=== PATIENT | male | born 1965 | race Caucasian/White ===

== ENCOUNTER 2025-02-22 02:09 | Observation (INO) | payer OTHER, SELFPAY ==
[2025-02-21 18:41] VITALS: BP 143/98
[2025-02-21 18:55] LABS: Hematocrit 51.6 % (39.0-52.0); Hemoglobin 18.2 g/dL (13.0-18.0); Mean Corp Hgb Conc. 35.3 g/dL (33.0-37.0); Mean Corpuscular Volume 84.3 fL (80.0-94.0); Nucleated Red Blood Cells % 0 % (-); Platelet Count 249 10^3/uL (130-400); Red Cell Dist. Width 13.5 % (11.5-14.5)
[2025-02-21 19:06] LABS: INR 0.98; PT 13.3 Sec (11.4-14.6)
[2025-02-21 19:11] LABS: ALT (SGPT) 43 U/L (0-50); AST (SGOT) 26 U/L (17-59); Albumin 4.3 g/dl (3.5-5.0); Alkaline Phosphatase 40 U/L (38-126); Blood Urea Nitrogen 24 mg/dl (9-20); Calcium 9.6 mg/dl (8.4-10.2); Carbon Dioxide 26 mmol/L (22-30); Chloride 104 mmol/L (98-107); Glucose 99 mg/dl (70-99); Potassium 5.1 mmol/L (3.5-5.1); Sodium 135 mmol/L (135-145); Total Protein 6.9 g/dl (6.3-8.2); eGFR 57.54
[2025-02-21 19:19] LABS: Troponin I < 0.012 ng/ml
[2025-02-21 23:21] VITALS: BP 135/88
--- NOTE | 2025-02-21 23:23 | ED.GENMED ---
History of Present Illness
General
Chief Complaint: Chest Pain
Source: patient
Exam Limitations: none
Time Seen by Provider: 02/21/25 23:22
History of Present Illness
History of Present Illness:
59-year-old male complaining of upper abdominal/lower chest pain that started 3 to 4 days ago. Some nausea. No pleuritic pain no shortness of breath no radiation to the arm or back.
Past History
Past History
ED Past Medical History: HTN and Hypercholesterolemia
ED Past Surgical History: Other (R groin hernias repaired 23 years ago)
Social History
Tobacco: Former smoker (quit 23 years ago)
Personal:
Living: with family
Employment: Employed (road oiling truck driver)
Review of Systems
Review of Systems
All Other Systems: Not applicable
Constitutional: Denies fever
Phy Exam
Physical Exam
Physical Exam:
GENERAL: Alert and oriented in no apparent distress
EYE: Orbits normal.
NECK: Supple, no significant adenopathy.
ENT: Pharynx without erythema
CARDIAC: Regular rate and rhythm without any obvious murmurs.
LUNGS: Clear breath sounds,normal
ABDOMEN: Somewhat of a tight abdomen however bowel sounds present. Minimal epigastric tenderness. No rebound or guarding no mass or hernia
NEUROLOGICAL: Alert and oriented , grossly non-focal
SKIN: Warm and dry, no rash or lesion, no discoloration, skin intact.
MUSCULOSKELETAL: No edema,no deformity.Good color
PSYCH: Normal and appropriate interaction.
Scores
Heart Score for Chest Pain Patients
STEMI patient?: No
History: Slightly or Non-Suspicious
ECG: Normal
Age: >45 - <65 years
Risk Factors: 1 or 2 Risk Factors
Troponin: </= Normal Limit
Heart Score for Chest Pain Patients: 2
Heart Score Risk: 2.5% MACE over next 6 weeks
Course
Orders/Labs/Results
Orders:
Orders
02/21/25 18:35
Electrocardiogram (*1) Urgent
Reason for Study: Chest Pain
EKG- Treatment ONCE
02/21/25 18:43
CR Chest - 2 Views Urgent
Comment:
Reason For Exam: chest pain
02/21/25 18:49
Complete Blood Count/With Diff Urgent
Comprehensive Metabolic Panel Urgent
Lipase Urgent
Comment: ADD ON
Prothrombin Time Urgent
Troponin I Urgent
02/21/25 23:31
Add On- LAB Urgent
Tests Added?: lipase
IV Insert/Care/Rem.- Treatment PRN
DDimer [D-Dimer] Urgent
Troponin I Urgent
Urinalysis Reflex To Culture Urgent
Date Specimen was Collected: 02/22/25
Time Specimen was Collected: 00:11
0.9% Sodium Chloride 500 ml [Nss] 500 ml IV BOLUS
02/22/25 00:00
US Abdomen Complete/Upper Urgent
Reason For Exam: Upper abdominal pain/leukocytosis
Abnormal Lab Results
02/21/25
18:49
WBC 13.5 H 10^3/uL
(4.8-10.8)
RBC 6.12 H 10^6/uL
(4.70-6.10)
Hgb 18.2 H g/dL
(13.0-18.0)
Abs Immat Gran (auto) 0.3 H 10^3/uL
(0-0.05)
Absolute Neuts (auto) 10.0 H 10^3/uL
(1.4-6.5)
Absolute Monos (auto) 1.3 H 10^3/uL
(0.1-0.6)
Immature Gran % 1.9 H %
(0-0.5)
Lymphocytes % 12.3 L %
(20.5-51.1)
Monocytes % 9.8 H %
(1.7-9.3)
BUN 24 H mg/dl
(9-20)
Creatinine 1.4 H mg/dL
(0.7-1.3)
Lipase 753 H U/L
(23-300)
02/21/25 18:49
02/21/25 18:49
Vital Signs
Initial and Last Documented VS:
Initial Vital Signs
Temp Pulse Resp BP Pulse Ox
98.7 F 96 17 143/98 96
02/21/25 18:41 02/21/25 18:41 02/21/25 18:41 02/21/25 18:41 02/21/25 18:41
Last Documented Vital Signs
Temp Pulse Resp BP Pulse Ox
98.7 F 83 24 128/87 96
02/21/25 18:41 02/22/25 00:15 02/22/25 00:15 02/22/25 00:00 02/22/25 00:15
MDM/Problems Addressed
Differential Diagnosis Includes:
Prolonged symptoms with negative EKG and troponin. Not a primary cardiac issue. No cytosis, lipase elevation prominent pancreas by ultrasound. Most suspicious of pancreatitis. Patient does drink three quarters of a case of beer on the weekends.
States he does not drink on weekdays. Possible etiologies would be alcohol or cholesterol/triglycerides.
*Radiology
Radiology exam reviewed: radiology read reviewed (Prominent pancreas.)
*Pulse Oximetry
SaO2: 96
Oxygen Mode of Delivery: Room air
Patient hypoxic: no
*EKG
Interpreted by ED Provider?: Yes
Interpretation: normal
Comparison EKG: no comparison EKG present
Heart Rate: 91
Rate: normal
Rhythm: sinus
[place]: normal axis
Interval: normal interval
QRS Pattern: normal QRS
Ischemia: no ischemia
*Critical Care Note
Total Time (30-74mins, 75-104mins- exclusive of procedures): Not Applicable
ED Attending Note
-
Portions of this chart may have been created with voice recognition software.� Occasional wrong word or��sound alike� substitutions may have occurred due to the inherent limitations of voice recognition software.
Discharge Plan
Departure
Patient Disposition: Admit
Date of Disposition: 02/22/25
Time of Disposition: 01:26
Presentation/result/management discussed w/ accepting MD/DO: Hospitalist
Discharge Problem:
Epigastric/chest pain, Probable pancreatitis
Prescriptions:
No Action
atorvastatin 20 mg Tablet
20 mg PO DAILY
lisinopril 20 mg Tablet
20 mg PO DAILY
Referrals:
León Hood MD [Family Provider, Internal Medicine]
Interventions
Interventions:
*Risk Screen - Suicide Last Done: 02/21/25 18:43
*General Assessment Last Done: 02/21/25 18:43
*Neglect/Abuse Screening Last Done: 02/21/25 18:43
*ED COVID-19 Vaccine History Last Done: 02/21/25 18:43
ED- Cardiac Assessment Last Done: 02/21/25 23:37
Discharge Date and Time
Print Language: SLOVAK
[2025-02-21 23:56] LABS: D-Dimer 0.30 ug/mlFEU (0.00-0.50)
[2025-02-22] VITALS (9 sets, daily range): BP systolic 119–143; BP diastolic 80–105
[2025-02-22 00:05] LABS: Lipase 753 U/L (23-300)
[2025-02-22 00:13] LABS: Troponin I < 0.012 ng/ml
[2025-02-22 00:39] LABS: Urine Character Clear (Clear)
--- NOTE | 2025-02-22 01:57 | HPS.HSE ---
Family Physician
-
Family Physician: León Hood
Chief Complaint
-
Abd Pain
History of Present Illness
Patient is a 59y M with PMH significant for hypertension and dyslipidemia who presents to ED complaining of abdominal pain. Patient states that the pain started on Thursday and has been persistent since that time. Pain is across the upper
abdomen. No radiation into the lower abdomen or the back. No nausea / emesis. No diarrhea. He states that the discomfort feels like indigestion. Patient states that he hate a lot of 'junk food' at work this past week - not his usual diet. He
denies any prior h/o similar symptoms. He drinks alcohol on the weekends.
Medical History
Past Medical History
Past Medical History: Reports Other
Additional Past Medical History:
Hypertension
Dyslipidemia
Past Surgical History: Reports Other
Additional Past Surgical History:
Hernia Repair
Social History
Tobacco: Former Smoker (Quit smoking 26 years ago.)
Alcohol: Binge drinker (Drinks on the weekends. Several drinks daily.)
Family History
Family History: Not pertinent
Allergies / Home Medications
Allergies reflects when Allergies were last updated in [facility].
Home Medications with original date entered in [facility]
Allergy/Medication List:
Allergies
Allergy/AdvReac Type Severity Reaction Status Date / Time
tetracycline (Tetracycline) Allergy Unknown Verified 02/21/25 18:42
Home Medications
atorvastatin 20 mg tablet 20 mg PO DAILY 02/22/25
lisinopril 20 mg tablet 20 mg PO DAILY 02/22/25
Review of Systems
-
History Source: Patient
A 12 point ROS was completed and negative except as noted: Yes
Constitutional: Denies Fever or Chills
Respiratory: Denies Cough or Trouble Breathing
Cardiac: Reports Chest Pain; Denies Diaphoresis, Palpitations or Syncope
Abdomen/GI: Reports Abdominal Pain; Denies Nausea, Vomiting or Diarrhea
: Denies Dysuria or Flank Pain
Neurological: Denies Dizzy or Headache
Psych: Denies Depression or Anxiety
Physical Exam
Vital Signs
Vital Signs
Temp Pulse Resp BP Pulse Ox
98.7 F 83 24 128/87 96
02/21/25 18:41 02/22/25 00:15 02/22/25 00:15 02/22/25 00:00 02/22/25 00:15
Physical Exam
General: Other (59y M in no acute distress.)
HEENT: Moist mucous membranes and PERRLA
Respiratory: Clear; No Wheezes, Rales or Rhonchi
Cardiac: S1/S2 and Regular Rhythm; No Murmur
GI: Other (Softly distended. Pos BS. No focal tenderness. No rebound / guarding.)
Musculoskeletal: No Clubbing, No Cyanosis and No Edema
Neuro: AO x 3
Laboratory Results
-
02/21/25 18:49
02/21/25 18:49
Laboratory Results
PT 13.3 Sec (11.4-14.6) 02/21/25 18:49
INR 0.98 02/21/25 18:49
Total Bilirubin 1.0 mg/dl (0.2-1.3) 02/21/25 18:49
AST 26 U/L (17-59) 02/21/25 18:49
ALT 43 U/L (0-50) 02/21/25 18:49
Alkaline Phosphatase 40 U/L (38-126) 02/21/25 18:49
Troponin I < 0.012 ng/ml 02/21/25 23:31
Lipase 753 U/L (23-300) H 02/21/25 18:49
Impression/Plan
-
A/P: Patient is a 59y M with PMH significant for hypertension and dyslipidemia who presents to ED complaining of abdominal pain.
Abdominal Pain
- Observe overnight for further evaluation and treatment.
- Epigastric abdominal pain / lower chest pain since Thursday.
- ? gastritis v pancreatitis.
- EKG unremarkable. Troponin undetectable x 2.
- Tele overnight. 3rd troponin in AM. Doubt ACS.
- Mild elevation in lipase and pancreatic prominence on US - ? mild pancreatitis.
- Clear liquid diet, IVFs, pain control.
- IV PPI daily.
- Follow for changes in symptoms.
- GI evaluation.
Benign Hypertension
- Stable. Continue lisinopril with holding parameters.
CKD III
- Stable. SCr at / near known baseline.
- Follow for any changes.
DVT Prophylaxis: Lovenox
Code Status: Full
[2025-02-22] MEDS: NSS 1000 IV ×2 (03:07→09:54)
--- NOTE | 2025-02-22 03:42 | PTCARENOTE ---
Pt. arrived to unit from ED via w/c. Pt. able to safely ambulate into room 318-2 on . Pt. AAOx3 and able to make needs known. Tele placed per orders. No c/o pain. Oriented to unit. Call nieto within reach. Plan of care ongoing.
[2025-02-22 07:23] LABS: Hematocrit 51.0 % (39.0-52.0); Hemoglobin 17.5 g/dL (13.0-18.0); Mean Corp Hgb Conc. 34.3 g/dL (33.0-37.0); Mean Corpuscular Volume 85.9 fL (80.0-94.0); Platelet Count 216 10^3/uL (130-400); Red Cell Dist. Width 13.3 % (11.5-14.5)
[2025-02-22 07:31] LABS: Troponin I < 0.012 ng/ml
[2025-02-22 08:16] LABS: ALT (SGPT) 39 U/L (0-50); AST (SGOT) 23 U/L (17-59); Albumin 4.0 g/dl (3.5-5.0); Alkaline Phosphatase 38 U/L (38-126); Blood Urea Nitrogen 24 mg/dl (9-20); Calcium 9.2 mg/dl (8.4-10.2); Carbon Dioxide 24 mmol/L (22-30); Chloride 104 mmol/L (98-107); Estimated Creatinine Clearance 108 ml/min; Glucose 122 mg/dl (70-99); Potassium 4.7 mmol/L (3.5-5.1); Sodium 134 mmol/L (135-145); Total Protein 6.4 g/dl (6.3-8.2); eGFR > 60.00
[2025-02-22 08:21] LABS: Lipase 627 U/L (23-300)
--- NOTE | 2025-02-22 08:58 | CON.GI ---
Addendum entered and electronically signed by Felecia Ball Do, MD 02/22/25 15:51:
I saw and evaluated the patient. I reviewed the resident�s note and agree with findings and plan as documented in the resident�s note.
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 It has since improved with bowel rest. He was concerned for heart disease and came in. Denies new meds or travel. There is ETOH 5-6drinks
prior. Denies prior abd pain. Vitals stable exam obese mild TTP epigastric mild distension. no guarding or rebound. Labs reviewed. Lipase 753 now downtrending
Impression
- Acute epigastric abd pain with elevated lipase
Ddx includes acute pancreatitis
1st episode, suspect ETOH related
- Fatty liver
- HTN
- Hyperlipidemia
- Obesity
Recommendations
- CTAP IV oral contrast
- Low fat diet after above given pain improvement
- Protonix 40mg daily
- Check TG tomorrow
- Also overdue for screening colonoscopy OP
Will follow with you
-
Original Note:
Consultation
-
Date/Time Consultation Requested: 02/22/2025; 02:49
Date/Time Consultation Performed: 02/22/2025; 08:58
Requesting Provider: Felix Smith DO
Performing Provider: Felecia Paz MD; Delroy Esparza MD
Reason for Consultation: gastritis v pancreatitis
Medical History
Chief Complaint / HPI
Chief Complaint: 'epigastric ache/tightness'
History of Present Illness:
HPI
59 yo M PMH HTN, dyslipidemia with a chief complaint of epigastric ache/tightness.
It began on Thursday, after consuming several and large quantities of new foods for an appreciation week. It is a dull ache/tightness, not pain. No burning character. It is nonradiating. He tried pepcid and alkasetzer which did not resolve the ache.
However, no clear aggravating or alleviating factors, the dull ache has been steady through the weekend and into this week. He reports that he does experience reflux with sauce-foods, but this current episode is not of that character. Not happened
before.
He also reports that the ache is not related to PO intake. Of note, he consumed 6-8 beers during [employer] game this past weekend, and reports no change in the character of the ache.
No nausea, vomiting, diarrhea, constipation or changes in stool. No redness or blackness in stool. His last meal was yesterday evening.
No sick contacts, he denies lightheadedness, headaches, cough, dyspnea, focal weakness
He did receive a cortisone injection to right shoulder for shoulder pain ~2 weeks ago, but otherwise no new medications or dosage changes. No nsaids - only pepcid, alkasetzer to try to resolve this ache).
He denies constitutional symptoms (weightloss, fevers, chills).
PMH, he has dyslipidemia and was previously on fenofibrate for elevated triglycerides, switched to atorvastatin 1-2 years ago. HTN for multiple decades.
PSH: hernia repair ~30 years ago.
Social history is remarkable for occupation diesel truck mechanic, reports drinking 6-8 beers at a time on the weekends. quit tobacco smoking 26 years ago. No recreational drug use.
Past Medical History
Past Medical History: HTN and Other (dyslipidemia)
Past Surgical History: Other (hernia repair)
Social History
Tobacco: Former Smoker
Alcohol: Binge Drinker (6-8 beers over weekends in 1 sitting)
Drug: None
Personal:
Living: With Family
Employment: Employed (diesel truck mechanic)
Family History
Family History: Cancer (brother: brain cancer; father: lung cancer.)
Allergies / Home Medications
Allergy/AdvReac Type Severity Reaction Status Date / Time
tetracycline (Tetracycline) Allergy Unknown Verified 02/21/25 18:42
�Medication �Instructions �Recorded
atorvastatin 20 mg tablet 20 mg PO DAILY 02/22/25
lisinopril 20 mg tablet 20 mg PO DAILY 02/22/25
Review of Systems
-
History Source: Patient
Constitutional: Reports No Symptoms
EENT: Reports No Symptoms
Respiratory: Reports No Symptoms
Cardiac: Reports No Symptoms
Abdomen/GI: Reports Other (epigastric ache/tightness)
: Reports No Symptoms
Musculoskeletal: Reports No Symptoms
Skin: Reports No Symptoms
Neurological: Reports No Symptoms
Vital Signs
Temp Pulse Resp BP Pulse Ox
98.0 F 79 17 132/94 97
02/22/25 07:21 02/22/25 07:21 02/22/25 07:21 02/22/25 07:21 02/22/25 07:21
Physical Exam
Exam
General: No Apparent Distress
HEENT: Normocephalic, Anicteric and Moist Mucous Membranes
Respiratory: Clear
Cardiac: Murmur (no murmurs on my exam) and Other (pedal pulses were equal bilaterally on my exam)
GI: Soft, Non Tender, Normal Bowel Sounds, Distended and Other (Large abdominal girth; on my exam: no pulsatile mass appreciated; no abdominal bruits auscultated)
Musculoskeletal: No Edema
Skin: Other (no eruptive xanthomas on my exam)
Neuro: AO x 3 and No Motor Deficits
Psych: Calm
Results
WBC 10.4 10^3/uL (4.8-10.8) 02/22/25 06:52
Hgb 17.5 g/dL (13.0-18.0) 02/22/25 06:52
Hct 51.0 % (39.0-52.0) 02/22/25 06:52
MCV 85.9 fL (80.0-94.0) 02/22/25 06:52
Plt Count 216 10^3/uL (130-400) 02/22/25 06:52
Absolute Neuts (auto) 10.0 10^3/uL (1.4-6.5) H 02/21/25 18:49
PT 13.3 Sec (11.4-14.6) 02/21/25 18:49
INR 0.98 02/21/25 18:49
Sodium 134 mmol/L (135-145) L 02/22/25 06:52
Potassium 4.7 mmol/L (3.5-5.1) 02/22/25 06:52
Chloride 104 mmol/L (98-107) 02/22/25 06:52
Carbon Dioxide 24 mmol/L (22-30) 02/22/25 06:52
BUN 24 mg/dl (9-20) H 02/22/25 06:52
Creatinine 0.8 mg/dL (0.7-1.3) 02/22/25 06:52
Calcium 9.2 mg/dl (8.4-10.2) 02/22/25 06:52
Total Bilirubin 1.2 mg/dl (0.2-1.3) 02/22/25 06:52
AST 23 U/L (17-59) 02/22/25 06:52
ALT 39 U/L (0-50) 02/22/25 06:52
Alkaline Phosphatase 38 U/L (38-126) 02/22/25 06:52
Lipase 627 U/L (23-300) H 02/22/25 06:52
Diagnostic Image Results:
Abdominal ultrasound 02/22/2025:
FINDINGS: Preliminary report provided by [facility].
The gallbladder appears normal with a negative sonographic Chatman's sign. There is no evidence of biliary ductal dilation. The common bile duct measures 5 mm, within normal range of less than 6 mm in this 59-year-old patient.
Liver length is 20 cm, with top normal considered 18.0 cm. Diffuse increased echogenicity of the liver with increased attenuation of the ultrasound beam, findings compatible with fatty infiltration. No evidence of a focal hepatic lesion. The main
portal vein is patent with normal direction of flow.
The spleen appears normal with maximum dimension of 10.4 cm.
The pancreas is somewhat prominent sonographically, and the patient does have an elevated lipase value. There is no evidence for a focal fluid collection.
The upper abdominal IVC and the upper abdominal aorta appear normal.
Survey views of both kidneys are obtained with no evidence of mass, calculus, or pelvicalyceal dilation. Right kidney length is 12.5 cm and left kidney length is 14.1 cm.
IMPRESSION:
Normal appearance of the gallbladder with no evidence for biliary ductal dilation.
Hepatomegaly with diffuse fatty infiltration of the liver.
The pancreas is somewhat prominent sonographically, and the patient does have an elevated lipase value. No evidence for focal fluid collection.
Prior GI Procedures:
patient reports he has not had a colonoscopy or EGD.
Assessment / Plan
-
In summary, 59 yo M PMH HTN, dyslipidemia p/w epigastric ache/tightness, found to have elevated lipase to 753, Hgb at 18.2, and abdominal ultrasound showing prominent pancreas currently most concerning for pancreatitis
# Epigastric ache
# Pancreatitis
Assessment:
- ddx for epigastric ache/pain is broad and includes peptic ulcer disease, pancreatitis, gastritis. Non-GI etiologies should be considered, including ACS, AAA given HTN and prior smoking use
- in this patient, elevated lipase to 753 (which is <3x Upper limit of normal; 900), characteristic pain, and sonographic evidence of 'prominent pancreas' which together can be interpreted as meeting criteria (2 of the 3) for diagnosis
- Etiology of pancreatitis includes gallstones, EtOH use, idiopathic, extreme hypertriglyceride (classically > 1000), medication-induced
- In this patient, he does not have eruptive xanthomas, no evidence of gallstones on US, the EtOH use was after the onset on epigastric ache, no changes in med doses. Only new med is cortisone injection to shoulder, which seems unlikely to trigger
pancreatitis, but I guess theoretically possible.
- He was told that his lipid panel was normal last year and has an appt with PCP in 2 weeks with routine blood work to be done.
- In short, it is unclear what the clear trigger is: possibly related to ongoing EtOH use and large volume food intake last week. Idiopathic pancreatitis is possible.
- His Hgb is elevated to 18.2 (baseline appears 17.5) which may suggest dehydration at admission, but mucus membranes moist on my exam today
- LFTs within normal limits
- he reports having an appetite
- Gastritis etiology is also possible because of large consumption of new foods over a week, followed by 6-8 beers during [employer] game.
- However, he denies nausea/vomiting, bloating, and reports having an appetite (currently CLD).
- PUD is possible, but no nsaid use, and no relationship of ache to PO intake (worsening or improvement).
- H pylori can be considered as well, and outpatient endoscopic evaluation may be appropriate given that he is feeling better.
- reassured against ACS with EKG NSR, and negative troponins x3.
- Abdominal US showed normal upper abdominal aorta; no pulsatile mass on my exam.
Plan:
- Meets criteria of pancreatitis with abdominal US and charateristic pain; management will include fluids, pain control, and early initiation of diet as tolerated
- Continue IV fluids, NS 150cc/hr
- Pain control appears well controlled (has not required hydromoprhone prn on my review)
- Continue IV Pantoprazole, can consider transitioning to PO pantoprazole for 7-10 days upon discharge.
- Since he reports having appetite and that ache is better, consider advancing to full liquid diet
- Outpatient GI follow-up for screening colonoscopy is indicated.
- At that time, EGD may be also be considered to evaluate gastritis-like symptoms if they persist.
- He has PCP appt in 2 weeks for routine labs.
-
-
Thank you for consultation and allowing me to participate in the patient's care. Please call the head of sales promotion GI physician during the after hours with any questions or concerns.
[2025-02-22] MEDS: NSS (PRESERVATIVE FREE) 10 ML IV (09:49)
[2025-02-22] MEDS: ZESTRIL 20 MG PO (09:49)
[2025-02-22] MEDS: PROTONIX IV 40 MG IV (09:49)
--- NOTE | 2025-02-22 11:33 | CM ---
Patient seen at bedside
IA completed
OBS status - form explained & signed. In chart
Lives with in 2 story home, 1 [address], flight to bed/bath
plof: independent, works, drives
denies dme
denies VN/rehab
pcp: Daryn Cameron
Pharmacy: [facility]. [place]
Plan: home no needs when stable
to transport
[2025-02-22] MEDS: OMNIPAQUE 50 ML PO (12:37)
--- NOTE | 2025-02-22 13:04 | W.PN.HOSP.TC ---
Today's Communication/Plan
-
Clears
CT
Assessment / Plan
Assessment / Plan
59-year-old male epigastric pain. Had some alcoholic drinks prior to this starting.
Ultrasound of the abdomen-normal appearance of gallbladder with no evidence of biliary ductal dilatation. Hepatomegaly with diffuse fatty infiltration of the liver. Pancreas prominent sonographically
Mild discomfort in the epigastric area
cvs s1 s2 normal
Chest CTA
Abd soft and NT
# Epigastric pain
EKG without any ischemia troponin undetectable x 2
CXR no acute changes
Possibly mild pancreatitis pain and elevated lipase with mild prominence of the pancreas on the ultrasound
Clear liquid diet continue PPI
Will hold off on MRI since GI already ordered CAT scan
GI evaluation
# Hypertension-continue lisinopril
# Hyperlipidemia-continue statin
# CKD stage III
# Ex smoker
# DVT prophylax-Lovenox
# Full code
D/W GI
D/W at bed side
Part of this note was created using voice recognition system. Occasional wrong word or��sound alike� substitutions may have inadvertently occurred due to the inherent limitations of voice recognition software. If noted kindly bring it to my
attention for correction.
Anticipated Discharge: Within 24 hours
Subjective/Interval History
-
Date of Service: February 22, 2025
Objective Data
-
Labs:
Laboratory Results
02/22/25
06:52
WBC 10.4
Hgb 17.5
Hct 51.0
Plt Count 216
Sodium 134 L
Potassium 4.7
Chloride 104
Carbon Dioxide 24
BUN 24 H
Creatinine 0.8
Glucose 122 H
Calcium 9.2
Total Bilirubin 1.2
AST 23
ALT 39
Alkaline Phosphatase 38
Vital Signs:
Vital Signs
Temp Pulse Resp BP Pulse Ox
97.9 F 81 17 122/85 95
02/22/25 10:55 02/22/25 10:55 02/22/25 10:55 02/22/25 10:55 02/22/25 10:55
--- NOTE | 2025-02-22 19:27 | W.PN.UPDATE ---
Update Note
Progress Note Update
Patient insistant on leaving AMA, reviewed condition and treatment plan. He understands the risks of leaving AMA. Stated he will follow up with his primary care provider. AMA form signed.
--- NOTE | 2025-02-23 07:32 | W.PN.UPDATE ---
Update Note
Progress Note Update
Lobo- [id number]
== END 2025-02-22 19:30 | disposition left against medical advice (07) ==
LOC: 3 WEST ACU 02:09
PROVIDERS: Emergency Medicine; ADMITTING PHYSICIAN Hospitalist; ATTENDING PHYSICIAN Hospitalist; CONSULT PHYSICIAN Internal Medicine Gastroenterology; EMERGENCY PHYSICIAN Emergency Medicine; FAMILY PHYSICIAN Internal Medicine
DX: K85.90 Acute pancreatitis without necrosis or infection, unspecified (principal); R07.9 Chest pain, unspecified; E78.00 Pure hypercholesterolemia, unspecified; I12.9 Hypertensive chronic kidney disease with stage 1 through stage 4 chronic kidney disease, or unspecified chronic kidney disease; K29.70 Gastritis, unspecified, without bleeding; K76.0 Fatty (change of) liver, not elsewhere classified; K21.9 Gastro-esophageal reflux disease without esophagitis; E78.1 Pure hyperglyceridemia; E66.9 Obesity, unspecified; M25.78 Osteophyte, vertebrae; M43.17 Spondylolisthesis, lumbosacral region; Z87.891 Personal history of nicotine dependence; Z88.1 Allergy status to other antibiotic agents; Z79.899 Other long term (current) drug therapy; Z68.30 Body mass index [BMI] 30.0-30.9, adult; Z80.1 Family history of malignant neoplasm of trachea, bronchus and lung; Z80.8 Family history of malignant neoplasm of other organs or systems
CPT/HCPCS: 71046; 74177; 76700; 80048; 80053; 80076; 81003; 83690; 84484; 85025; 85027; 85379; 85610; 93005; 99285; G0378; Q9967